=== PATIENT | female | born 1965 | race Caucasian/White ===

== ENCOUNTER 2017-11-25 16:23 | Emergency (ER) | payer MEDICAID, MEDICARE ==
[~2017-11-25] VITALS: Ht 162.6 cm; Wt 80.0 kg
[2017-11-25] MEDS ORDERED: FLEXERIL (16:32)
[2017-11-25] MEDS ORDERED: NORCO 5MG (16:32)
[2017-11-25 19:29] VITALS: BP 127/78
== END 2017-11-25 19:44 | disposition home or self-care (01) ==
LOC: ER 16:55
DX: S16.1XXA Strain of muscle, fascia and tendon at neck level, initial encounter (principal); E11.9 Type 2 diabetes mellitus without complications; F17.200 Nicotine dependence, unspecified, uncomplicated; W22.8XXA Striking against or struck by other objects, initial encounter; Y93.89 Activity, other specified; Y92.89 Other specified places as the place of occurrence of the external cause; Y99.8 Other external cause status; Z98.890 Other specified postprocedural states
CPT/HCPCS: 72125; 99284